=== PATIENT | male | born 1970 | race Caucasian/White ===

== ENCOUNTER 2019-03-14 07:43 | Day surgery (SDC) | payer OTHER, SELFPAY ==
--- NOTE | 2019-03-14 | PATH_ITS ---
[facility] Accession Number: [id number] . 01 Material submitted: . PART A: cecum - CECUM PART B: body - POLYP AT 90 CM . 02 Diagnosis: A. Cecum, Biopsy: Colonic mucosa with prominent benign lymphoid aggregates. Negative for active, chronic and microscopic colitis. Negative for dysplasia and malignancy. . B. Colon, Polyp at 90 cm, Biopsy: Tubular adenoma. V 03/15/2019 1024 Local . 02 Electronically signed: . Sarah Rosenthal MD, Pathologist NPI- [id number] . 01 Gross description: . Part A: CECUM: Received in formalin are 2 fragment(s) of talley, soft tissue measuring 0.2 x 0.2 x 0.2 cm to 0.3 x 0.2 x 0.2 cm which is entirely submitted and submitted entirely in 1 cassette(s) Part B: POLYP AT 90 CM: Received in formalin are 2 fragment(s) of talley, soft tissue measuring 0.1 x 0.1 x 0.1 cm to 0.2 x 0.2 x 0.2 cm which is entirely submitted and submitted entirely in 1 cassette(s) /[facility] [place] 03/14/2019 1930 Local . 02 Pathologist provided ICD-10: D12.6 . 02 CPT . 352784, [id number] Performed at: 01 [facility] [address], [place], [place] [id number] MD Kalen Glass MD Phone: [phone] Performed at: 02 [facility] [address] [place], [place] [id number] MD Sarah Rosenthal MD Phone: [phone]
[2019-03-14 07:59] VITALS: BP 112/73; PULSE 55; RESP 15; TEMP 36.2; O2SAT 100; BMI 20.3
[2019-03-14] MEDS: SODIUM CHLORIDE 0.9% 1,000 ML 200 ML IV (08:17)
--- NOTE | 2019-03-14 08:53 | PM.HP.1 ---
History of Present Illness History of Present Illness Date Patient Seen: 03/14/19 Time Patient Seen: 08:53 Chief complaint: [address] SCREENING COLONOSCOPY Narrative: The patient is a gentleman here for screening colonoscopy. He just turned 48. He is adopted and does not know his family history. No blood rectal bleeding. Patient History Social History household members: none Family & Social History Social History: household members none Nonsmoker Meds Home Medications and Allergies Home Medications Medication Instructions Recorded Confirmed Type No Known Home Medications 03/14/19 03/14/19 History Allergies Allergy/AdvReac Type Severity Reaction Status Date / Time No Known Drug Allergies Allergy Verified 03/14/19 07:59 Review of Systems Review of Systems ROS Unobtainable: All systems reviewed & are unremarkable except as noted in HPI and below Exam Vital Signs (past 8 hours): - 03/14/19 07:59 Temperature 97.1 F L Pulse Rate 55 L Respiratory Rate 15 Blood Pressure 112/73 Pulse Oximetry 100 Oxygen Delivery Method Room Air Narrative Exam Narrative: Pleasant cooperative patient no apparent distress. Lungs are clear to auscultation. No rales or rhonchi. Heart regular rate and rhythm no murmur gallop. Abdomen is soft nontender without mass. No obvious hernias. Patient is alert and oriented x3. Assessment & Plan Assessment & Plan narrative: The patient for a screening colonoscopy. I have discussed the procedure with them. Risks of bleeding, perforation which would necessitate major operation, failure to find remove all lesions, the potential tattoo were all discussed. All questions were answered. They wished to proceed.
--- NOTE | 2019-03-14 08:55 | PM.PREOP ---
Pre-operative Note Interval Note History & Physical reviewed/Exam performed by Physician: Yes Changes to H&P: No ASA Class (for procedural sedation): I
--- NOTE | 2019-03-14 09:18 | SUR.OPER ---
Patient requested light sedation.
[2019-03-14] MEDS: fentaNYL 250 MCG/5 ML INJ IV (09:53)
[2019-03-14] MEDS: MIDAZOLAM 5 MG/5 ML VIAL IV (09:54)
[2019-03-14 10:01] VITALS: BP 114/72; PULSE 57; RESP 16; TEMP 36.5; O2SAT 100
--- NOTE | 2019-03-14 10:07 | PM.OP.ENDO ---
Operative Date/Time/Diagnoses Date of procedure: 03/14/19 Time of procedure: 10:08 Pre-op diagnosis: Screening examination. No prior colonoscopy. Post-op diagnosis: same (Unusual lesion at the appendiceal opening. Possible polyp at 90 cm from the anal verge.) Procedure & Clinicians Study performed: Colonoscopy with cold biopsy Same procedure as scheduled: Yes Indications: Screening Surgeon: Javier Casas Procedure Notes SCOAP/Timeout: Performed Procedure in detail: The patient was placed in the left lateral decubitus position and underwent IV sedation directed by the surgeon consisting of fentanyl and Versed. Digital exam was unremarkable. His prostate is flat.. The scope was inserted and advanced through the rectum into the sigmoid, descending, transverse, and ascending colon. Colon was quite tortuous and I had to insert a stiffener and reposition the patient in order to reach the ascending colon. Pressure was applied in order to reach the cecum.. The cecum was reached identified by the ileocecal valve and the appendiceal opening. The ileocecal valve was successfully cannulated. The terminal ileum was normal in appearance. In the cecum near the appendiceal opening were 2 raised lesions with normal mucosa covering them. I removed both with cold biopsy forceps. There was also a bulge in this same region which suggested the possibility of a mass outside the wall of the cecum, perhaps representing the appendix. It did not have the appearance of a lipoma within the wall of the colon. The scope was gradually brought out. A small raised Polyp-like lesion was found at 90 cm in the anal verge. It was removed with cold biopsy forceps. There was some bleeding from this but it was observed and noted to completely seese. The scope ultimately was retroflexed in the rectum. The appearance was normal. The scope was removed and the patient tolerated the procedure well. The prep was good. Scope withdrawal time: 11 minutes(13 total) Sedation minutes: 10 (Patient was only lightly sedated initially at his request. From start of sedation date and procedure was 40 2 minutes.) Findings: polyp and other findings (Possible mass in the region of the appendix) Specimen(s): other (Lesions near appendiceal opening and polypoid lesion at 90 cm) Complications: none Post-procedure Recommendations: Colonscopy in 10 years (May be sooner depending on pathology report. We will notify you) and Other recommendation (Depending on pathology may recommend CT scan to evaluate her cecum. We will call you to schedule that if that is the case) Plan for aftercare: Possible CT scan of the abdomen and pelvis Follow up: as needed Disposition: PACU
--- NOTE | 2019-03-14 12:24 | SUR.PHASEII ---
pt d/c with procedure note. Pt called on phone by Elana HUNTER to read instructions from MD as he had left prior to MD writing them. Pt voiced understanding of additional instructions.
== END 2019-03-14 10:19 | disposition home or self-care (01) ==
PROVIDERS: PCP Family Medicine; Visit Provider Specialist
PROC: 0DJD8ZZ Inspection of Lower Intestinal Tract, Via Natural or Artificial Opening Endoscopic (ICD-10-PCS; CPT 45378; principal; 2019-03-14 08:45)
DX: Z12.11 Encounter for screening for malignant neoplasm of colon (principal); D12.6 Benign neoplasm of colon, unspecified
CPT/HCPCS: 45380; 88305; 99152; J2250; J3010

== ENCOUNTER → 2020-05-19 08:09 | Outpatient (CLI) | payer OTHER, SELFPAY ==
[2020-05-19 08:59] LABS: Hemoglobin A1C% w Est Avg Glu 5.9 % (4.0-6.0)
[2020-05-19 09:05] LABS: Cholesterol 146 mg/dL (140-199); HDL Cholesterol 33 mg/dL (40-60); LDL Cholesterol Calculated 102 mg/dL (<100); Triglycerides 55 mg/dL (35-150)
== END ==
PROVIDERS: PCP Family Medicine; Referring Provider Family Medicine; Visit Provider Family Medicine
DX: Z00.01 Encounter for general adult medical examination with abnormal findings (principal)
CPT/HCPCS: 36415; 80061; 83036

== ENCOUNTER → 2021-03-25 09:11 | Outpatient (CLI) | payer OTHER, SELFPAY ==
--- NOTE | 2021-03-25 | DI.ECHO.S_ITS ---
[facility] +---------+ Hospital +---------+ : : [id number] : [place] [address] : : : : [id number] : : : : Phone: [phone]+ Echocardiogram Report + + :Name: YAMIL MYERS Study Date: 03/25/2021 Height: 70 in : :[facility] ReadingLocation: Weight: 147 lb : : Gender: Male BSA: 1.8 m2 : :: 1970 Age: 50 yrs BP: 135/94 mmHg: :Reason For Study: OTHER SPECIFIED DISORDERS OF ARTERIES AND : :ARTERIOLS : :Ordering Physician: JACOB, : :PARTHA Performed By: Cheryl Marte : :Referring: PARTHA LESLIE : + + Interpretation Summary 1) Normal left ventricular thickness, size, and systolic function (EF 55-60%). 2) Normal right ventricular size and function. 3) No significant valvular abnormalities. 4) The aortic root is borderline dilated at 4.0cm. 5) Compared to the Echo done 12/02/2019, no significant change. Procedure: A two-dimensional transthoracic echocardiogram with color flow and Doppler was performed. The study quality was technically adequate. Comparison is made with the echocardiogram of 12/02/2019. The patient was in sinus rhythm with heart rates between 52-70 bpm during the exam. Left Ventricle: The left ventricle is normal in size and wall thickness. The ejection fraction is estimated to be 55-60%. Left ventricular systolic function appears normal without focal wall motion abnormalities. Right Ventricle: The right ventricle is normal in size and function. Atria: The left atrium is moderately dilated. The right atrium is moderately dilated. There is no Doppler evidence for an interatrial shunt. Mitral Valve: The mitral valve is normal in structure and function. There is trace mitral regurgitation. Aortic Valve: The aortic valve is trileaflet. The aortic valve opens well. There is no aortic valve stenosis. No aortic regurgitation is present. Tricuspid Valve: The tricuspid valve is normal in structure and function. There is trace tricuspid regurgitation. Pulmonary artery pressures cannot be estimated because of the lack of a measurable TR jet velocity but the IVC suggests a CVP of around 8 mmHg. Pulmonic Valve: The pulmonic valve leaflets are thin and pliable; valve motion is normal. There is mild pulmonic regurgitation. Great Vessels: The aortic root is borderline dilated. The ascending aorta is normal in size. The IVC is dilated (diameter is greater than 2.1 cm) yet it collapses greater than 50% with a sniff. This suggests a right atrial pressure of 8 mm Hg. Pericardium/ Pleura There is no pericardial effusion. There is no pleural effusion. MMode/2D Measurements & Calculations LVIDd: 5.3 cm LVOT diam: 2.4 cm LVIDs: 3.6 cm Ao root diam: 4.0 cm FS: 31.2 % asc Aorta Diam: 3.4 cm IVSd: 0.76 cm Ao Arch Diam (Prox Trans): 2.8 cm LVPWd: 0.67 cm LV dye. diameter/BSA (cm/m^2): 2.9 LV sys. diameter/BSA (cm/m^2): 2.0 LA A2 area: 21.2 cm2 RA long axis: 5.2 cm LA A4 area: 18.0 cm2 RA area: 20.1 cm2 LA length (vol): 5.2 cm RA vol: 65.6 ml LA vol: 62.2 ml RA : 35.8 ml/m2 LA vol index: 34.0 ml/m2 IVC diam: 2.3 cm RVD1 (basal): 3.7 cm TAPSE: 2.3 cm Doppler Measurements & Calculations Ao V2 max: 91.4 cm/sec LVOT Max Erik: 74.0 cm/sec Ao V2 mean: 65.1 cm/sec LV V1 max P.2 mmHg Ao max P.3 mmHg LV V1 VTI: 15.2 cm Ao mean P.9 mmHg DESMNOD(I,D): 3.4 cm2 Ao V2 VTI: 20.6 cm DESMOND(V,D): 3.7 cm2 sev ratio: 0.74 DESMOND indexed to BSA (cm^2/m^2): 1.9 MV E max erik: 55.8 cm/sec PA V2 max: 89.0 cm/sec MV A max erik: 41.0 cm/sec PA V2 mean: 62.9 cm/sec MV E/A: 1.4 PA mean P.7 mmHg Med Peak E' Erik: 11.9 cm/sec PA pr(Accel): 36.2 mmHg E/E' med: 4.7 Lat Peak E' Erik: 13.3 cm/sec E/E' lat: 4.2 E/e' average: 4.4 MV dec time: 0.20 sec SV(LVOT): 70.2 ml Reading Physician:12:18 PM
== END ==
PROVIDERS: PCP Student in an Organized Health Care Education/Training Program; Referring Provider Internal Medicine Cardiovascular Disease; Visit Provider Internal Medicine Cardiovascular Disease
DX: I37.1 Nonrheumatic pulmonary valve insufficiency (principal); I77.89 Other specified disorders of arteries and arterioles
CPT/HCPCS: 93306

== ENCOUNTER → 2021-08-27 08:47 | Outpatient (CLI) | payer OTHER, SELFPAY ==
--- NOTE | 2021-08-27 | DI.MRI.S_ITS ---
PROCEDURE: MR KNEE RT WO CON INDICATIONS: RIGHT KNEE PAIN TECHNIQUE: Noncontrast sagittal PD fast spin echo and T2 fast spin echo with fat saturation, sagittal 3-D FLASH with fat saturation; coronal T1 spin echo and PD fast spin echo with fat saturation, and axial PD fast spin echo with fat saturation through the knee. COMPARISON: None. FINDINGS: Image quality: Excellent. Menisci: The medial and lateral menisci demonstrate normal morphology and internal signal. The meniscal root ligaments appear intact. Cruciate ligaments: The anterior and posterior cruciate ligaments appear intact. Medial structures: The medial collateral ligament appears intact. Visualized portions of the pes anserinus tendons appear normal. No abnormal bursal fluid. Lateral structures: The lateral collateral ligament, long and short heads of the biceps femoris tendon appear intact. The popliteus tendon appears normal Iliotibial band appears normal. Anterior structures: The quadriceps and patellar tendons appear intact. Patellar alignment is normal. No femoral trochlear dysplasia or ventral trochlear prominence. No edema in the infrapatellar fat pad. Bones and cartilage: No bone marrow contusions or fractures. The cartilage of the medial and lateral femorotibial compartments, as well as the patellofemoral compartment, appears normal in thickness. Joint space: Trace knee joint fluid. No Mora's cyst. Normal appearing synovial plicae are incidentally noted. IMPRESSION: No significant abnormality. Dictated by: Nimesh Shelton M.D. on 08/27/2021 at 10:15 Approved by: Nimesh Shelton M.D. on 08/27/2021 at 10:47
== END ==
PROVIDERS: PCP Student in an Organized Health Care Education/Training Program; Referring Provider Orthopaedic Surgery; Visit Provider Orthopaedic Surgery
DX: M25.561 Pain in right knee (principal); M25.461 Effusion, right knee
CPT/HCPCS: 73721